=== PATIENT | female | born 1975 | race Caucasian/White ===

== ENCOUNTER 2017-03-18 23:11 | Emergency (ER) | payer OTHER ==
[~2017-03-18] VITALS: Ht 167.6 cm; Wt 56.7 kg
[~2017-03-18 23:11] MED LIST: CYCLOBENZAPRINE5 MG PO; FLAGYL500 MG PO; FLEXERIL10 MG PO; GABAPENTIN300 MG PO; HYDROCODON-ACE1 EA10 PO; IBUPROFEN200 MG PO; IBUPROFEN800 MG PO; LIDOCAINE30 G TOP; LORTAB 7.5-5001 EACH PO; MACROBID 100 M100 MG PO; MEDROL4 M1 PO; METHOCARBAMOL500 MG PO; NEURONTIN100 MG PO; NORCO 5-325 TA1 EACH PO; NORTRIPTYLINE H50 MG PO; OMEPRAZOLE20 MG; PERCOCET 5-3251 EACH PO; ROBAXIN-750750 MG PO; TRAMADOL HCL50 MG PO; VITAMIN D22000 UNIT PO; XANAX1 MG PO; ZOFRAN ODT4 MG PO; ZOFRAN4 MG PO
[2017-04-05] MEDS ORDERED: KEFLEX500 MG PO (20:18)
[2017-04-05] MEDS ORDERED: PYRIDIUM200 MG PO (20:18)
[2017-06-22] MEDS ORDERED: OMEPRAZOLE20 M1 PO (09:40)
[2017-06-22] MEDS ORDERED: PROMETHAZINE12.5 M1 PO (09:40)
[2017-06-22] MEDS ORDERED: SUCRALFATE1 GM PO (09:41)
[2017-06-22] MEDS ORDERED: NICOTINE PATCH1 EAC1 TD (09:41)
== END 2017-03-19 01:10 | disposition home or self-care (01) ==
LOC: ED 23:11
DX: R10.2 Pelvic and perineal pain (principal); G89.29 Other chronic pain; F17.200 Nicotine dependence, unspecified, uncomplicated; Z90.49 Acquired absence of other specified parts of digestive tract; Z90.89 Acquired absence of other organs; Z88.8 Allergy status to other drugs, medicaments and biological substances
CPT/HCPCS: 81001; 84703; 99283

== ENCOUNTER → 2017-04-05 | Emergency (ER) | payer SELFPAY ==
[~2017-04-05] VITALS: Ht 167.6 cm; Wt 54.4 kg
[~2017-04-05] MED LIST changes: +KEFLEX500 MG PO; +NICOTINE PATCH1 EAC1 TD; +OMEPRAZOLE20 M1 PO; +PROMETHAZINE12.5 M1 PO; +PYRIDIUM200 MG PO; +SUCRALFATE1 GM PO
== END | disposition home or self-care (01) ==
LOC: ED 18:37
DX: N39.0 Urinary tract infection, site not specified (principal); F17.200 Nicotine dependence, unspecified, uncomplicated; Z90.49 Acquired absence of other specified parts of digestive tract; Z88.8 Allergy status to other drugs, medicaments and biological substances
CPT/HCPCS: 81001; 84703; 87077; 87088; 87186; 99283

== ENCOUNTER 2017-06-17 17:37 | Emergency (ER) | payer SELFPAY ==
[~2017-06-17] VITALS: Ht 167.6 cm; Wt 54.4 kg
[~2017-06-17 17:37] MED LIST changes: -NICOTINE PATCH1 EAC1 TD; -OMEPRAZOLE20 M1 PO; -PROMETHAZINE12.5 M1 PO; -SUCRALFATE1 GM PO
[2017-06-22] MEDS ORDERED: PROMETHAZINE12.5 M1 PO (09:40)
[2017-06-22] MEDS ORDERED: OMEPRAZOLE20 M1 PO (09:40)
[2017-06-22] MEDS ORDERED: SUCRALFATE1 GM PO (09:41)
[2017-06-22] MEDS ORDERED: NICOTINE PATCH1 EAC1 TD (09:41)
== END 2017-06-17 23:48 | disposition home or self-care (01) ==
LOC: ED 17:37
DX: R11.2 Nausea with vomiting, unspecified (principal); F17.200 Nicotine dependence, unspecified, uncomplicated; Z88.8 Allergy status to other drugs, medicaments and biological substances; Z90.49 Acquired absence of other specified parts of digestive tract; Z90.89 Acquired absence of other organs
CPT/HCPCS: 74177; 80053; 81001; 83605; 83690; 84703; 85025; 96361; 96374; 96375; 96376; 99283; J0780; J1200; J2060; J2405; J7030; Q9967

== ENCOUNTER 2018-09-15 16:44 | Emergency (ER) | payer OTHER ==
[~2018-09-15] VITALS: Ht 167.6 cm; Wt 56.0 kg
[~2018-09-15 16:44] MED LIST changes: +NICOTINE PATCH1 EAC1 TD; +OMEPRAZOLE20 M1 PO; +PROMETHAZINE12.5 M1 PO; +SUCRALFATE1 GM PO
--- OUTSIDE RECORDS SUMMARY | 2018-09-15 16:46 | XMS ---
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 Care Guidelines exist for the following facilities: [facility] ( 11/22/2017 ) [place] VISIT COUNT (12 MO.) [address] [facility] TOTAL 1 NOTE: Visits indicate total known visits. ED/UCC VISIT TRACKING (12 MO.) 09/15/2018 16:[address] [facility] [place] TYPE: Emergency COMPLAINT: - [facility] INPATIENT VISIT TRACKING (12 MO.) No inpatient visits to display in this time frame [email or web address]
== END 2018-09-16 12:30 | disposition home or self-care (01) ==
LOC: ED 16:44
DX: F32.9 Major depressive disorder, single episode, unspecified (principal); M54.5 Low back pain; K14.0 Glossitis; F17.200 Nicotine dependence, unspecified, uncomplicated; Z88.8 Allergy status to other drugs, medicaments and biological substances; Z79.899 Other long term (current) drug therapy
CPT/HCPCS: 70491; 72100; 80053; 80176; 81001; 84703; 85025; 96372; 96374; 96375; 99285-25; G0480; J1630; J1885; J2060; Q9967

== ENCOUNTER 2022-04-18 20:20 | Emergency (ER) | payer OTHER ==
[~2022-04-18] VITALS: Ht 167.6 cm; Wt 76.9 kg
[~2022-04-18 20:20] MED LIST changes: +BENADRYL25 MG PO; +VRAYLAR1.5 MG PO
[2022-04-18] MEDS ORDERED: LASIX20 MG PO (22:19)
== END 2022-04-18 22:34 | disposition home or self-care (01) ==
LOC: ED 20:20
DX: S93.504A Unspecified sprain of right lesser toe(s), initial encounter (principal); F17.200 Nicotine dependence, unspecified, uncomplicated; Z88.8 Allergy status to other drugs, medicaments and biological substances; X58.XXXA Exposure to other specified factors, initial encounter
CPT/HCPCS: 36415; 73660; 80053; 85025; 85610; 96374; 99283-25; J1940

== ENCOUNTER 2022-07-23 10:28 | Emergency (ER) | payer OTHER ==
[~2022-07-23] VITALS: Ht 167.6 cm; Wt 78.9 kg
[~2022-07-23 10:28] MED LIST changes: +LASIX20 MG PO
[2022-07-23] MEDS ORDERED: VRAYLAR6 MG PO (12:45)
== END 2022-07-23 15:28 | disposition home or self-care (01) ==
LOC: ED 10:28
DX: R10.2 Pelvic and perineal pain (principal); R10.31 Right lower quadrant pain; F17.200 Nicotine dependence, unspecified, uncomplicated; Z88.8 Allergy status to other drugs, medicaments and biological substances; Z79.899 Other long term (current) drug therapy; M54.50 Low back pain, unspecified
CPT/HCPCS: 36415; 74176; 80053; 81001; 84703; 85025; 96374; 96375; 99284-25; J1885; J2405

== ENCOUNTER 2023-06-16 11:17 | Emergency (ER) | payer OTHER ==
[~2023-06-16] VITALS: Ht 167.6 cm; Wt 72.9 kg
[~2023-06-16 11:17] MED LIST changes: +VRAYLAR6 MG PO
[2023-06-16] MEDS ORDERED: CRUTCHES XX (12:29)
[2023-06-16] MEDS ORDERED: NAPROSYN500 MG PO (12:29)
[2023-06-16 12:50] VITALS: BP 138/70
== END 2023-06-16 12:51 | disposition home or self-care (01) ==
LOC: ED 11:17
DX: S93.602A Unspecified sprain of left foot, initial encounter (principal); X58.XXXA Exposure to other specified factors, initial encounter; F17.200 Nicotine dependence, unspecified, uncomplicated; Z88.8 Allergy status to other drugs, medicaments and biological substances; Z79.899 Other long term (current) drug therapy
CPT/HCPCS: 73630; 99283-25

== ENCOUNTER 2024-03-21 14:29 | Emergency (ER) | payer OTHER ==
[~2024-03-21] VITALS: Ht 167.6 cm; Wt 71.0 kg
[~2024-03-21 14:29] MED LIST changes: +AMOX TR-K CLV1 EAC1 PO; +CRUTCHES XX; +NAPROSYN500 MG PO; +VITAMIN D21250 MCG
[2024-03-21] MEDS ORDERED: DOXYCYCLINE HY100 MG PO (15:02)
[2024-03-21 15:18] VITALS: BP 104/89
== END 2024-03-21 15:17 | disposition home or self-care (01) ==
LOC: ED 14:29
DX: S71.151D Open bite, right thigh, subsequent encounter (principal); S71.152D Open bite, left thigh, subsequent encounter; L08.9 Local infection of the skin and subcutaneous tissue, unspecified; W54.0XXD Bitten by dog, subsequent encounter; Z88.8 Allergy status to other drugs, medicaments and biological substances; Z79.899 Other long term (current) drug therapy
CPT/HCPCS: 99283

== ENCOUNTER 2024-08-08 08:49 | Day surgery (SDC) | payer OTHER ==
[~2024-08-08] VITALS: Ht 167.6 cm; Wt 76.8 kg
[~2024-08-08 08:49] MED LIST changes: +CEFAZOLIN SODIUM 2 GM/20 ML SYR IV SCH; +DOXYCYCLINE HY100 MG PO; +HEParin SOD (PORCINE) 5,000 UNIT/0.5 ML SYR SUB-Q SCH; +IBLOOD GLUCOSE TEST STRIP 1 EA TEST VI PRN; +LACTATED RINGER'S 1,000 ML IV SCH; +LIDOCAINE HCL 1% 5 ML SDV INJ ONE
[2024-08-08 09:00] VITALS: BP 124/77
--- NOTE | 2024-08-08 10:20 | NUR ---
1000 CHECKED IN ON PT, UPDATED ON WAIT TIME. PT UNDERSTANDING. PT REQUESTS MORE BLANKETS. WARM BLANKETS PROVIDED. PT HAS CALL LIGHT WITHIN REACH.
[2024-08-08] MEDS ORDERED: ACETAMINOPHEN 1,000 MG/100 ML VIAL ONE (10:35)
[2024-08-08] MEDS ORDERED: LIDOCAINE HCL 2% 20 MG/ML VIAL INJ ONE (10:35)
[2024-08-08] MEDS ORDERED: propofoL 200 MG/20 ML VIAL ONE (10:35)
[2024-08-08] MEDS ORDERED: fentaNYL citrate 100 MCG/2 ML VIAL ONE ×2 (10:35→11:37)
[2024-08-08] MEDS ORDERED: ondansetron HCL 4 MG/2 ML VIAL ONE (10:35)
[2024-08-08] MEDS ORDERED: DEXAMETHASONE SOD PHOS 4 MG/ML VIAL ONE (10:35)
[2024-08-08] MEDS ORDERED: KETOROLAC TROMETHAMINE 30 MG/ML VIAL ONE (10:36)
[2024-08-08] MEDS ORDERED: MIDAZOLAM HCL 2 MG/2 ML VIAL ONE (10:36)
[2024-08-08] MEDS ORDERED: NALOXONE HCL 0.4 MG SYR IV PRN ×2 (12:15→12:30)
[2024-08-08] MEDS ORDERED: HYDROCODONE/ACETA 5/325 TAB PO PRN ×2 (12:15→12:30)
[2024-08-08] MEDS ORDERED: HYDROCODON-ACE1 EA10 PO ×2 (12:23→12:36)
[2024-08-08] MEDS ORDERED: ACETAMINOPHEN325 M1 PO (12:24)
--- NOTE | 2024-08-08 12:25 | NUR ---
08/08/24 1225 Tiff Matamoros 1205 PT ARRIVED IN PACU NON RESPONSIVE TO NOXIOUS STIMULI. CHIN LIFT HELD BY RN. [address] AT BEDSIDE.
[2024-08-08] MEDS ORDERED: MOTRIN IB200 MG PO (12:26)
[2024-08-08] MEDS ORDERED: IBUPROFEN 600 MG TAB PO PRN (12:30)
[2024-08-08] MEDS ORDERED: ACETAMINOPHEN 500 MG TAB PO PRN (12:30)
[2024-08-08] MEDS ORDERED: fentaNYL citrate 50 MCG/ML SDV ONE (12:32)
[2024-08-08] MEDS ORDERED: ACETAMINOPHEN500 MG PO (12:36)
[2024-08-08] MEDS ORDERED: IBUPROFEN600 MG PO (12:36)
[2024-08-08] MEDS ORDERED: SEVOFLURANE 250 ML BTL INH ONE (12:44)
[2024-08-08] MEDS ORDERED: fentaNYL citrate 100 MCG/2 ML VIAL IV PRN (12:45)
[2024-08-08 13:09] VITALS: BP 114/85
--- NOTE | 2024-08-08 13:19 | NUR ---
1305 PT ARRIVED TO DAY SURGERY FROM PACU VIA STREACHER. PT AWAKE AND ORIENTED. PT REPORTS TOLERABLE 4/10 PAIN. PT REPORTS NO NAUSEA. VITALS TAKEN. IV ASSESSED. PT RESTING IN BED WITH BOYFRIEND AT BEDSIDE. PT HAS JELLO AND WATER AT BEDSIDE. BED LOW AND LOCKED. CALL LIGHT WITHIN REACH.
[2024-08-08 13:59] VITALS: BP 113/78
--- NOTE | 2024-08-08 14:58 | NUR ---
1408 HOURLY ROUNDING DONE. VITALS TAKEN. IV ASSESSED. PT REPORTS 3/10 TOLERABLE HAYDEN. PT REPORTS NO NAUSEA. 1405 PT AMBULATED TO THE BATHROOM TO VOID. PT ABLE TO VOID 200 MLS OF CLEAR YELLOW URINE. 1410 PT DRESSED ON OWN. IV REMOVED. 1415 PT DISCHARGED FROM DAY SURGERY VIA WHEELCHAIR TO THE FRONT OF THE HOSPITAL TO PT'S BOYFRIEND'S CAR.
--- NOTE | 2024-08-08 19:57 | OR ---
[facility] [address], [place] [address] Signed DATE OF OPERATION: 08/08/2024 SURGEON: Yves Sandoval MD Administrative Aide Surgeon: Oneil Sandoval MD PREOPERATIVE DIAGNOSIS: Left lateral microcalcifications with possible radial scar histology. POSTOPERATIVE DIAGNOSIS: Left lateral microcalcifications with possible radial scar histology. PROCEDURE: Image guided left partial mastectomy (MACKENZIE traffic incident management manager). ANESTHESIA: General LMA, Dakota Ramirez CRNA and local 5 mL of 0.25% Marcaine with epinephrine. INDICATION: This 49-year-old white woman is a patient of Dr. Anny Grant. She underwent mammography, which showed a cluster of microcalcifications in the left lateral breast. Image guided biopsy by stereotactic technique confirmed probable radial scar. Given that histology and a real but low incidence of malignancy associated with this, it has been recommended that excision be undertaken. Since the lesion is nonpalpable, a localization technique is necessary. Needle localization is a possibility, however, locally a [place]IE traffic incident management manager approach has been a more dominant approach. She understands the risk of operation including but not limited to bleeding, infection, need for additional treatment should malignancy be found and other unforeseen complications including cosmetic deformity. She understands that and wished to proceed. FINDINGS: Good localization with the MACK[place]IE traffic incident management manager reflector was noted. A circumareolar incision was made and a lateral flap elevated to preserve cosmesis. Wide resection of the tissue was undertaken approximately 4 x 5 cm in maximum dimension with the superior margin marked with a short stitch and a long stitch for the lateral margin. The specimen radiograph confirmed that the appropriate markers were within the specimen, though somewhat on the edge or near margin. DESCRIPTION OF PROCEDURE: The patient was brought to the operating room, given a general LMA type anesthetic. Intravenous antibiotics were administered preoperatively. Sequential compression device stockings were used. The left breast was prepared with a chlorhexidine solution and Electronically Signed By: YVES SANDOVAL MD 08/08/24 1957 PATIENT NAME: CECILIO GREY OPERATIVE REPORT DATE OF : 79 REPORT #: [id number] PHYSICIAN: YVES SANDOVAL MD PCP: ANNY GRANT MD REPORT IS CONFIDENTIAL AND NOT TO BE RELEASED WITHOUT AUTHORIZATION [facility] [address], [place] [address] Signed draped sterilely. The left lateral breast was interrogated with the MACKENZIE traffic incident management manager probe as it had been in the day surgery area preoperatively. The area of maximum signal was identified with a svetlana. The areolar margin was stimulated and marked allowing for a circumareolar incision in the lateral aspect on the left. Dissection was carried through the dermis sharply and using electrocautery the flap was elevated laterally. Using frequent use of the MACK[place]IE traffic incident management manager probe the area in question was easily identified and Allis clamps applied to the parenchyma of the breast. Wide resection was undertaken with electrocautery, ultimately excising the tissue completely. Affirmation of the marker within the specimen was undertaken and it was sent for specimen radiograph as well. Hemostasis was assured within the breast biopsy site with electrocautery. Irrigation with sterile water was undertaken showing no sign of bleeding. Oleg hemostatic agent was insufflated into the cavity. The wound was closed in layers of interrupted 3-0 Vicryl and a running subcuticular 4-0 Vicryl. Steri-Strips were applied as was an Acticoat dressing. Specimen radiograph confirmed that the area in question was excised within the specimen itself. She was ultimately extubated and transferred to the recovery room in good condition having suffered no complication. Sponge, needle, and instrument counts were reported as correct x3. Yves Sandoval MD /MARIANL /[id number] cc: MD Dr. Oneil Jaquez Copies: ~ Electronically Signed By: YVES SANDOVAL MD 08/08/241956 PATIENT NAME: CECILIO GREY OPERATIVE REPORT DATE OF : 79 REPORT #: [id number] PHYSICIAN: YVES SANDOVAL MD PCP: ANNY GRANT MD REPORT IS CONFIDENTIAL AND NOT TO BE RELEASED WITHOUT AUTHORIZATION
--- NOTE | 2024-08-11 15:36 | PATH ---
[facility] [address], [place] [address] Signed SPECIMEN(S): A LEFT LATERAL BREAST TISSUE SPECIMEN SOURCE: A. LEFT LATERAL BREAST TISSUE CLINICAL HISTORY: Abnormal mammogram left breast with microcalcifications. FINAL PATHOLOGIC DIAGNOSIS: Left lateral breast tissue, lumpectomy: - Benign breast tissue with sclerosing adenosis. - Fibrocystic changes with duct hyperplasia of the usual type. - Biopsy site changes. - Microcalcifications present in benign breast tissue. COMMENT: As part of [facility] Quality Improvement Program, this case was reviewed by another member of our pathology staff. JVR:cml MICROSCOPIC EXAMINATION: Histologic sections of all submitted blocks are examined by light microscopy. These findings, together with the gross examination, support the pathologic diagnosis. A smooth muscle myosin immunostain is performed with appropriate controls on block A11 and is positive in the area of concern, supporting the diagnosis. JVR:cml GROSS DESCRIPTION: The specimen, labeled and designated "Flavia, B, " and designated on the requisition "left lateral breast tissue," is received in formalin and consists of 23 gram oriented portion of yellow-cabrera fibroadipose tissue that is 5.5 x 4.3 x 2.3 cm. A short suture is present and identifies the superior margin; a long suture identifies the lateral margin. The specimen is inked as follows: superior - blue; inferior - green; medial - red; lateral - orange; anterior - yellow; and posterior - black. The specimen is serially sectioned from medial to lateral into eight slices revealing a metallic wireless internet installer detector in slice two and a biopsy cavity clip in slice three. Approximately 80% of the specimens yellow-cabrera greasy adipose tissue and 20% is a pink-white rubbery fibrous tissue. No discrete PATIENT NAME: CECILIO GREY PATHOLOGY DATE OF : 79 REPORT #: [id number] PHYSICIAN: NEELIMA PATHOLOGY PCP: RADHA JENKINS MD REPORT IS CONFIDENTIAL AND NOT TO BE RELEASED WITHOUT AUTHORIZATION [facility] [address], [place] [address] Signed mass lesions are grossly identified. The specimen is entirely submitted in 22 cassettes. Cassette Summary: (A1-A3) slice one, medial soft tissue resection margin, perpendicular (A4-A6) slice two (A7-A9) slice three (A10-A12) slice four (A13-A15) slice five (A16-A17) slice six (A18-A19) slice seven (A20-A22) slice eight Time of collection: 11:40 AM August 08, 2024. Time into formalin: 11:49 AM August 08, 2024. Processor load time: 9 AM August 09, 2024. Ischemic time: 9 minutes Total fixation time in formalin: 21 hours 11 minutes The ASCO/CAP guidelines related to HER2 and hormone receptor testing in breast specimens have been met and the specimen has been placed in formalin within one hour and fixed in 10% neutral buffered formalin for 6 to 72 hours. FB (under the direct supervision of a pathologist) The Gross Description was prepared using a voice recognition system. The report was reviewed for accuracy; however, sound-alike word errors, addition and/or deletions may occur. If there is any question about this report, please contact Client Services. ADDITIONAL NOTES: Immunohistochemical and/or in situ hybridization studies were performed on this case with the appropriate positive controls that react as expected. This test was developed and its performance characteristics determined by [facility] It has not been cleared or approved by the U.S. Food and Drug Administration. The FDA has determined that such clearance or approval is not necessary. This test is used for clinical purposes. It should not be regarded as investigational or for research. [facility]. is certified under the Clinical Laboratory Improvement Amendments of 1988 (CLIA) as qualified to perform high complexity clinical laboratory testing. This assay has not been validated for specimens that have been decalcified. PERFORMING LABORATORY: PATIENT NAME: CECILIO GREY PATHOLOGY DATE OF : 79 REPORT #: [id number] PHYSICIAN: YUE[employer]ent [employer]els PATHOLOGY PCP: RADHA JENKINS MD REPORT IS CONFIDENTIAL AND NOT TO BE RELEASED WITHOUT AUTHORIZATION [facility] [address] [place] [id number] Signed Technical component was performed by [facility] [address] [place] [id number] (CLIA# [id number]). Professional interpretation was performed by [facility], [address] [place] [address], [place] [address] (CLIA#: [id number]). Diagnostician: Moisés Farris MD Pathologist Electronically Signed 08/11/2024 Copies: ~ PATIENT NAME: CECILIO GREY CONY PATHOLOGY DATE OF : 79 REPORT #: [id number] PHYSICIAN: NEELIMA PATHOLOGY PCP: RADHA JENKINS MD REPORT IS CONFIDENTIAL AND NOT TO BE RELEASED WITHOUT AUTHORIZATION
== END 2024-08-08 14:15 | disposition home or self-care (01) ==
LOC: DS 08:49
PROVIDERS: ATTEND Surgery
PROC: 0HBU0ZZ Excision of Left Breast, Open Approach (ICD-10-PCS; principal; 2024-08-08 10:00)
DX: N60.22 Fibroadenosis of left breast (principal); N62 Hypertrophy of breast; R92.0 Mammographic microcalcification found on diagnostic imaging of breast; N64.89 Other specified disorders of breast; Z88.8 Allergy status to other drugs, medicaments and biological substances; Z78.0 Asymptomatic menopausal state
CPT/HCPCS: 00400; 76098; 84703; 88307; 88342; J0131; J0690; J1100; J1644; J1885; J2250; J2405; J2704; J3010; J7121